=== PATIENT | male | born 1965 | race Caucasian/White ===

== ENCOUNTER 2020-03-17 07:22 | Emergency (ER) | payer OTHER, MEDICAID, SELFPAY ==
[2020-03-17] VITALS (8 sets, daily range): BP systolic 154–181; BP diastolic 76–98; PULSE 84–105; RESP 16; TEMP 36.4; O2SAT 95–97; BMI 29.8
--- NOTE | 2020-03-17 07:51 | ED_ITS ---
HPI - Back Pain/Injury General Chief Complaint: Back Pain/Injury Stated Complaint: Sharp pain in right side and back Time Seen by Provider: 03/17/20 07:45 History of Present Illness HPI Narrative: 54-year-old gentleman with a history of prior renal stones, hypertension, hyperlipidemia, cardiac disease presents with acute onset right flank pain that awoke him from sleep early this morning. He notes that yesterday he was doing some activity with bending twisting and lifting however he did not feel any back pain or spasm with the activity nor prior to going to bed last night. He notes no fevers no dysuria and no hematuria. No specific abdominal pain. The pain is significant enough he is having some mild nausea but has not had any emesis. No chest pain, dyspnea, palpitations, orthopnea or lower extremity edema. Related Data Previous Rx's Medication Instructions Recorded ondansetron 4 mg PO Q6H PRN #14 tab 03/17/20 ondansetron 4 mg PO Q6H PRN #14 tab 03/17/20 oxycodone-acetaminophen 1 tab PO Q6H PRN #14 tab 03/17/20 oxycodone-acetaminophen 1 tab PO Q6H PRN #14 tab 03/17/20 polyethylene glycol 3350 [GlycoLax] 17 gram PO DAILY PRN #238 gram 03/17/20 polyethylene glycol 3350 [GlycoLax] 17 gram PO DAILY PRN #238 gram 03/17/20 Review of Systems Review of Systems Narrative: Remainder of review of systems including constitutional, ENT, cardiovascular, respiratory, GI, , musculoskeletal, skin, neurologic and psychiatric systems reviewed and are unremarkable except as noted in HPI. Patient History Medical History Anxiety (Acute) Hyperlipidemia (Acute) Hypertension (Acute) Kidney stones (Acute) Family History Father Stroke Mother Cancer Social History Smoking Status: Never smoker Smoking Status: Never smoker alcohol intake frequency: holidays/special occasions only Substance Use Type: does not use Exam Narrative Exam Narrative: General: Mildly disheveled, able to give a complete and coherent history in obvious pain with mild diaphoresis HEENT: Moist mucous membranes, normal sclera with reactive pupils, Neck: supple Respiratory: Lungs are clear to auscultation, no wheezing no rales no rhonchi. Full and symmetrical air movement Cardiac: Regular rate and rhythm no murmurs no bruits Abdomen: Soft nontender good bowel tones, right flank pain and right lumbar paraspinous pain without spasm appreciated Skin: Mildly diaphoretic with pain, no rashes Neurologic: Grossly neurologically intact with no obvious asymmetries or abnormalities Extremities: No trauma, well perfused Psych: Cooperative, appropriate insight and affect Initial Vital Signs Initial Vital Signs: Vital Signs Temperature 97.6 F 03/17/20 07:36 Pulse Rate 85 03/17/20 07:36 Respiratory Rate 16 03/17/20 07:36 Blood Pressure 177/98 H 03/17/20 07:36 Pulse Oximetry 97 03/17/20 07:36 Course Orders Ordered: ED Orders 03/17/20 07:44 Complete Blood Count AUTO DIFF Stat Comprehensive Metabolic Panel Stat Lipase Stat Urine Culture Stat Urine Microscopic Stat 03/17/20 07:51 CT kidney ureter bladder (KUB) Stat Discontinued Medications Sodium Chloride (Normal Saline 0.9%) 1,000 mls @ 1,000 mls/hr IV BOLUS ONE Stop: 03/17/20 08:49 Last Infusion: 03/17/20 09:33 Dose: 0 mls/hr Documented by: Admin: 03/17/20 08:05 Dose: 1,000 mls/hr Documented by: SAVANNAH Ketorolac Tromethamine (Toradol) 15 mg IV NOW ONE Stop: 03/17/20 07:51 Last Admin: 03/17/20 08:05 Dose: 15 mg Documented by: SAVANNAH Ondansetron HCl (Zofran) 4 mg IV NOW ONE Stop: 03/17/20 07:51 Last Admin: 03/17/20 08:05 Dose: 4 mg Documented by: SAVANNAH Vital Signs Vital signs: Vital Signs - 8 hr 03/17/20 07:36 03/17/20 07:37 03/17/20 07:58 Temperature 97.6 F Pulse Rate 85 85 87 Respiratory Rate 16 Blood Pressure 177/98 H 154/89 H Pulse Oximetry 97 96 97 03/17/20 08:08 03/17/20 08:30 03/17/20 09:00 Temperature Pulse Rate 84 84 95 H Respiratory Rate Blood Pressure 156/90 H 169/87 H Pulse Oximetry 97 95 97 03/17/20 09:30 Temperature Pulse Rate 91 H Respiratory Rate Blood Pressure 164/76 H Pulse Oximetry 97 MDM - Back Pain/Injury Medical Records Attestation: I reviewed the patient's medical records. Lab Data Attestation: I reviewed the patient's lab results. Result diagrams: 03/17/20 07:44 03/17/20 07:44 Labs: Lab Results 03/17/20 03/17/20 03/17/20 Range/Units 07:44 07:44 07:44 WBC 9.8 (4.5-11.0) X10^3/uL RBC 4.76 (4.5-5.9) X10^6/uL Hgb 15.1 (13.5-17.5) g/dL Hct 43.2 (41-53) % MCV 90.7 (80-100) fL MCH 31.7 (26-34) PG MCHC 34.9 (30-36) % RDW 13.9 (11.6-14.8) % Plt Count 263 (150-400) X10^3/uL Neut % (Auto) 80.1 H (50-75) % Lymph % (Auto) 13.6 L (25-40) % [place] % (Auto) 5.3 (3-14) % Eos % (Auto) 0.3 L (2-4) % Baso % (Auto) 0.7 (0-2) % Neut # (Auto) 7900 H (2476-9936) /uL Lymph # (Auto) 1300 (0569-5124) /uL [place] # (Auto) 500 (0-900) /uL Eos # (Auto) 0 (0-450) /uL Baso # (Auto) 100 (0-100) /uL Sodium 141 (137-145) mmol/L Potassium 4.0 (3.4-5.1) mmol/L Chloride 108 H (98-107) mmol/L Carbon Dioxide 24 (22-32) mmol/L BUN 17 (9-20) mg/dL Creatinine 0.73 (0.66-1.25) mg/dL Estimated GFR > 60.0 (>60) mL/min BUN/Creatinine Ratio 23.3 H (6-22) Glucose 152 H (70-100) mg/dL Calcium 9.6 (8.4-10.2) mg/dL Total Bilirubin 0.6 (0.2-1.3) mg/dL AST 34 (17-59) IU/L ALT 41 (<50) IU/L Alkaline Phosphatase 104 (38-126) U/L Total Protein 7.7 (6.3-8.2) g/dL Albumin 4.4 (3.5-5.0) g/dL Globulin 3.3 (1.7-4.1) g/dL Albumin/Globulin Ratio 1.3 (1.0-2.8) Lipase 168 (23-300) U/L Urine RBC 30-100/hpf H (0-5/HPF) Urine WBC 1-5/hpf (0-5/HPF) Ur Squamous Epith Cells 1-5 /hpf (0-5/HPF) Urine Bacteria None seen (None) Urine Yeast 10-30/hpf H (None) Ur Culture Indicated? Specimen cultured Urine Dip Bedside Urine Glucose Negative Bedside Urine Bilirubin - Negative Bedside Urine Ketone - Negative Urine Specific [place] 1.025 Bedside Urine Occult Blood +++ Bedside Urine pH 6.0 Bedside Urine Protein ++ 100 Bedside Urine Urobilinogen - Negative Bedside Urine Nitrite - Negative Bedside Urine Leukocytes + [address] KUB: Radiologist's Impression: FINDINGS: Image quality: Excellent. Lung bases: Lung bases are clear. Heart size is normal. Urinary system: Within the distal right ureter, there are several large stones seen. These have progressed compared to the 2014 examination. There is an oblong stone seen involving the distal most right ureter, which measures greater than 3 cm craniocaudal. There is associated moderate right-sided hydroureter and hydronephrosis. Numerous nonobstructing right-sided kidney stones are seen, with the largest solitary stone measuring 2.8 cm inferiorly. On the left, stones are also seen, yet are smaller in size, with a less substantial stone burden. The largest individual stone measures 8 mm. No left ureteral stones are seen. No left-sided hydronephrosis. The urinary bladder is decompressed. A few bladder stones can be seen. Other solid organs: Liver is normal in size. Gallbladder wall is not thickened. At the tail of the pancreas, there is a soft tissue lobule seen, which appears slightly less dense than the adjacent normal tissue that measures 16 x 18 mm. This appears increased in size compared to the 2014 examination. The pancreas otherwise d emonstrates an unremarkable appearance. No pancreatic ductal dilatation is seen. Spleen is normal in size. No adrenal nodules. Peritoneum and bowel: Unenhanced bowel loops demonstrate normal wall thickness and caliber. No free fluid or air. Nodes and vessels: No retroperitoneal or mesenteric adenopathy by size criteria. Aorta and inferior vena cava are normal in caliber. Abdominal wall: A mild periumbilical hernia is seen, containing fat. Pelvis: No free pelvic fluid. No enlarged inguinal or pelvic lymph nodes are seen. There is a fat-containing left inguinal hernia seen. Bones: No suspicious bony lesions. No vertebral body compression fractures. Minimal S shaped scoliotic curvature is seen. Age-appropriate bony degenerative changes are seen. IMPRESSION: There is a prominent burden of stones seen within the right ureter, which has progressed compared to 2014. There is associated moderate right-sided hydroureter and hydronephrosis. Numerous nonobstructing kidney stones are seen, with the largest stone seen at the inferior pole of the right kidney that measures up to 2.8 cm. A few bladder stones are seen. There is a moderately suspicious lobule of soft tissue seen at the tail pancreas, which may represent a pancreatic neoplasm. When clinically appropriate, please consider a dedicated pancreatic protocol CT or MRI for further evaluation (assuming that there is no contraindication). Incidental note is made of: Fat containing periumbilical hernia Minimal S-shaped scoliotic curvature Note: Findings and recommendations discussed by telephone with Dr. Colette Barboza at 7:27 a.m. [place] time on March 17, 2020. Dictated by: Oren Valdivia M.D. on 03/17/2020 at 7:20 MDM Narrative Medical decision making narrative: Numerous nonobstructing right-sided kidney stones are seen, with the largest solitary stone measuring 2.8 cm inferiorly. On the left, stones are also seen, yet are smaller in size, with a less substantial stone burden. The largest individual stone measures 8 mm. No left ureteral stones are seen. No left-sided hydronephrosis. Given the large burden of stones will contact Urology for additional advice. He is feeling better after Toradol. Renal function is spared and there is no evidence of acute infection. Incidental finding of a pancreatic lobule, At the tail of the pancreas, soft tissue lobule seen, which appears slightly less dense than the adjacent normal tissue that measures 16 x 18 mm. This appears increased in size compared to the 2014 examination that will need outpatient follow-up. 9:50 care is reviewed with Dr. Vinson. She agrees that home discharge is safe. Requested the patient call the office in the morning and request to speak to Dr. Noonan's nurse to arrange judicious ER follow-up Discharge Plan Departure Patient Disposition: Home Clinical Impression: Kidney stones, Anxiety, Pancreatic abnormality Hypertension Qualifiers: Hypertension type: essential hypertension Qualified Code(s): I10 - Essential ( primary) hypertension Instructions: DI for Kidney Stones Activity Restrictions/Additional Instructions: You have a very large kidney stone on the right side that does not seem to be co mpletely blocking so urine is getting past. The stone is large enough that you do need to see Dr. Noonan, sooner rather than later. I spoke with the urologist research nurse practitioner and she has asked that you call his office 1st thing in the morning and ask to speak to his nurse to help you arrange a follow-up appointment as soon as possible. Using 400 mg of ibuprofen (2 [id number] pills) and 1 Tylenol every 6 hours can be very helpful in controlling pain. For severe pain you can take 2 ibuprofen and 1 Percocet. Percocet has narcotic in it and will cause constipation. Any day that you use Percocet please also have a dose of MiraLax (17 g, 1 full purple cap full of powder dissolved in a large glass of water/juice/coffee/tea) to prevent constipation. If you are having any nausea you can use ondansetron to help with that If you develop fevers or pain that is uncontrollable with the medications you have at home it would be appropriate to return to the emergency department Prescriptions: New oxycodone-acetaminophen 5-325 mg tablet 1 tab PO Q6H PRN (Reason: pain) Qty: 14 RF: 0 polyethylene glycol 3350 [GlycoLax] 17 gram/dose powder 17 gram PO DAILY PRN (Reason: constipation) Qty: 238 RF: 0 ondansetron 4 mg tablet,disintegrating 4 mg PO Q6H PRN (Reason: nausea and vomiting) Qty: 14 RF: 0 oxycodone-acetaminophen 5-325 mg tablet 1 tab PO Q6H PRN (Reason: pain) Qty: 14 RF: 0 ondansetron 4 mg tablet,disintegrating 4 mg PO Q6H PRN (Reason: nausea and vomiting) Qty: 14 RF: 0 polyethylene glycol 3350 [GlycoLax] 17 gram/dose powder 17 gram PO DAILY PRN (Reason: constipation) Qty: 238 RF: 0
[2020-03-17 07:56] LABS: Bacteria Urine None Seen
[2020-03-17 07:58] LABS: Add Manual Diff / Slide Review NO; Basophils Absolute Auto 100 /uL (0-100); Basophils Percent Auto 0.7 % (0-2); Eosinophils Absolute Auto 0 /uL (0-450); Eosinophils Percent Auto 0.3 % (2-4); Hematocrit 43.2 % (41-53); Hemoglobin 15.1 g/dL (13.5-17.5); Lymphocytes Absolute Auto 1300 /uL (1100-4500); Lymphocytes Percent Auto 13.6 % (25-40); Mean Corpuscular HGB Conc 34.9 % (30-36); Mean Corpuscular Hemoglobin 31.7 PG (26-34); Mean Corpuscular Volume 90.7 fL (80-100); Monocytes Absolute Auto 500 /uL (0-900); Monocytes Percent Auto 5.3 % (3-14); Neutrophils Absolute Auto 7900 /uL (1500-7000); Neutrophils Percent Auto 80.1 % (50-75); Platelet Count 263 X10^3/uL (150-400); Red Blood Cell Count 4.76 X10^6/uL (4.5-5.9); Red Cell Distribution Width 13.9 % (11.6-14.8); White Blood Cell Count 9.8 X10^3/uL (4.5-11.0)
[2020-03-17] MEDS: KETOROLAC 60 MG/2 ML VIAL 15 MG IV (08:05)
[2020-03-17] MEDS: SODIUM CHLORIDE 0.9% 1,000 ML 1000 ML IV (08:05)
[2020-03-17] MEDS: ONDANSETRON 4 MG/2 ML INJ IV (08:05)
[2020-03-17 08:08] LABS: Alanine Aminotransferase 41 IU/L (<50); Albumin 4.4 g/dL (3.5-5.0); Albumin Globulin Ratio 1.3 (1.0-2.8); Alkaline Phosphatase 104 U/L (38-126); Aspartate Aminotransferase 34 IU/L (17-59); BUN Creatinine Ratio 23.3 (6-22); Bilirubin Total 0.6 mg/dL (0.2-1.3); Blood Urea Nitrogen 17 mg/dL (9-20); Calcium 9.6 mg/dL (8.4-10.2); Carbon Dioxide 24 mmol/L (22-32); Chloride 108 mmol/L (98-107); Estimated Glomerular Filt Rate > 60.0 mL/min (>60); Globulin 3.3 g/dL (1.7-4.1); Glucose 152 mg/dL (70-100); HEMOLYSIS < 15 (0-50); Lipase 168 U/L (23-300); Sodium 141 mmol/L (137-145); Total Protein 7.7 g/dL (6.3-8.2)
[2020-03-17 08:17] LABS: RBC Urine 30-100/HPF (0-5/HPF); Squamous Epithelial Cell Urine 1-5 /HPF (0-5/HPF); WBC Urine 1-5/HPF (0-5/HPF)
[2020-03-17 08:18] LABS: Culture Indicated Urine Specimen Cultured
== END 2020-03-17 10:08 | disposition home or self-care (01) ==
PROVIDERS: Emergency Provider Emergency Medicine
DX: N20.0 Calculus of kidney (principal); F41.9 Anxiety disorder, unspecified; Q45.3 Other congenital malformations of pancreas and pancreatic duct; I10 Essential (primary) hypertension; E78.5 Hyperlipidemia, unspecified
CPT/HCPCS: 36415; 74176; 80053; 81003; 81015; 83690; 85025; 87077; 87086; 87186; 96361; 96374; 96375; 99284; J1885; J2405